=== PATIENT | female | born 1980 | race Caucasian/White ===

== ENCOUNTER → 2018-07-24 | Outpatient (CLI) | payer BC ==
[2018-07-24 12:03] LABS: Basophils % (A) 0 %; Eosinophils # (A) 0.1 k/uL (0-0.7); Eosinophils % (A) 2 %; HCT 43.7 % (34.0-46.0); HGB 14.5 gm/dL (11.4-16.0); Lymphocytes # (A) 1.1 k/uL (1.0-4.8); Lymphocytes % (A) 27 %; MCH 29.9 pg (25.0-35.0); MCHC 33.3 g/dL (31.0-37.0); MCV 89.7 fL (80.0-100.0); Mean Platelet Volume 6.8; Monocytes # (A) 0.3 k/uL (0-1.0); Monocytes % (A) 7 %; Neutrophils # (A) 2.6 k/uL (1.3-7.7); Neutrophils % (A) 60 %; Platelet Count 260 k/uL (150-450); RBC 4.87 m/uL (3.80-5.40); RDW 12.7 % (11.5-15.5); WBC 4.3 k/uL (3.8-10.6)
[2018-07-24 18:31] LABS: Albumin 3.7 g/dL (3.80-4.90); Albumin/Globulin Ratio 1.54 (1.60-3.17); Anion Gap 8.6 mmol/L (4.00-12.00); Calcium 8.9 mg/dL (8.7-10.3); Carbon Dioxide 26.4 mmol/L (21.6-31.8); Globulin 2.4 g/dL (1.6-3.3); LDL Cholesterol,Calculated 179.4 mg/dL (0.0-131.0); Potassium 3.8 mmol/L (3.5-5.5); Total Bilirubin 0.5 mg/dL (0.2-1.2); Total Protein 6.1 g/dL (6.2-8.2); VLDL Calculation 16.6 mg/dL (5.00-40.00)
[2018-07-24 18:39] LABS: T4, Free (Free Thyroxine) 1.2 ng/dL (0.80-1.80)
[2018-07-24 20:25] LABS: Hemoglobin A1C 4.9 % (4.0-6.0)
[2018-07-25 10:04] VITALS: BMI 30.2
== END ==
LOC: LABWHC1 09:38
PROVIDERS: ATTEND Internal Medicine Geriatric Medicine
DX: E78.2 Mixed hyperlipidemia (principal)
CPT/HCPCS: 36415; 80053; 80061; 83036; 84439; 84443; 85025; 97802

== ENCOUNTER → 2019-03-11 | Outpatient (CLI) | payer BC ==
--- NOTE | 2019-03-11 10:32 | MM ---
Reason for exam: screening (asymptomatic). Last mammogram was performed 2 years and 7 months ago. History: Family history of breast cancer in paternal grandmother and breast cancer in paternal aunt. Physical Findings: A clinical breast exam by your physician is recommended on an annual basis and results should be correlated with mammographic findings. MG 3D Screening Mammo W/Cad Bilateral CC and MLO view(s) were taken. Prior study comparison: August 03, 2016, mammogram, performed at [facility]. There are scattered fibroglandular densities. No suspicious abnormality. No significant changes when compared with prior studies. ASSESSMENT: Negative, BI-RAD 1 RECOMMENDATION: Routine screening mammogram of both breasts in 1 year.
== END | disposition home or self-care (01) ==
LOC: RADMAMWWP 10:00
PROVIDERS: ATTEND Obstetrics & Gynecology
DX: Z12.31 Encounter for screening mammogram for malignant neoplasm of breast (principal)
CPT/HCPCS: 77063; 77067

== ENCOUNTER → 2020-06-15 | Outpatient (CLI) | payer BC ==
[2020-06-15 15:33] LABS: HCT 41.8 % (37.2-46.3); HGB 14.2 g/dL (12.0-15.0); MCH 31.3 pg (27.0-32.0); MCV 92.1 fL (80.0-97.0); Mean Platelet Volume 10.2 fL (9.5-12.2); Platelet Count 287 X 10*3/uL (140-440); RBC 4.54 X 10*6/uL (4.10-5.20); RDW 12.1 % (11.5-14.5); WBC 4.18 X 10*3/uL (4.50-10.00)
[2020-06-15 18:12] LABS: African American GFR (CKD) 106.1 (60.0-200.0); Albumin 3.5 g/dL (3.80-4.90); Albumin/Globulin Ratio 1.21 (1.60-3.17); BUN/Creat Ratio 17.5 Ratio (12.00-20.00); Calcium 9.8 mg/dL (8.7-10.3); Chol/HDL Ratio 3.74; Globulin 2.9 g/dL (1.6-3.3); LDL Cholesterol,Calculated 170.4 mg/dL (0.0-131.0); Non-African American GFR(CKD) 91.6 (60.0-200.0); Potassium 4.9 mmol/L (3.5-5.5); Total Bilirubin 0.6 mg/dL (0.3-1.2); Total Protein 6.4 g/dL (6.2-8.2); VLDL Calculation 15.6 mg/dL (5.00-40.00)
== END | disposition home or self-care (01) ==
LOC: LABWHC1 09:24
PROVIDERS: ATTEND Obstetrics & Gynecology
DX: Z13.220 Encounter for screening for lipoid disorders (principal)
CPT/HCPCS: 36415; 80053; 80061; 85027

== ENCOUNTER → 2021-07-06 | Outpatient (CLI) | payer BC ==
[2021-07-06 18:58] LABS: HGB 14.1 g/dL (12.0-15.0); MCH 30.1 pg (27.0-32.0); MCHC 32.8 g/dL (32.0-37.0); MCV 91.9 fL (80.0-97.0); Mean Platelet Volume 10.7 fL (9.5-12.2); NRBC Per 100 WBC 0 /100 WBCS (0.0-0.0); Platelet Count 291 X 10*3/uL (140-440); RBC 4.68 X 10*6/uL (4.10-5.20); RDW 12.9 % (11.5-14.5); WBC 3.47 X 10*3/uL (4.50-10.00)
[2021-07-07 00:27] LABS: ALT 42 U/L (8-44); AST 26 U/L (13-35); African American GFR (CKD) 126.3 (60.0-200.0); Albumin 3.8 g/dL (3.8-4.9); Alkaline Phosphatase 44 U/L (41-126); Blood Urea Nitrogen 14.5 mg/dL (9.0-27.0); Calcium 9.4 mg/dL (8.7-10.3); Carbon Dioxide 22.6 mmol/L (20.0-27.5); Chloride 106 mmol/L (96-109); Chol/HDL Ratio 4.13 Ratio; Globulin 3.1 g/dL (1.6-3.3); Glucose 77 mg/dL (70-110); LDL Cholesterol,Calculated 143.4 mg/dL (0.0-131.0); Potassium 3.9 mmol/L (3.5-5.5); Sodium 140 mmol/L (135-145); Total Protein 6.9 g/dL (6.2-8.2); VLDL Calculation 15.04 mg/dL (5.00-40.00)
--- NOTE | 2021-07-07 11:18 | MM ---
Reason for exam: screening (asymptomatic). Last mammogram was performed 2 years and 4 months ago. History: Family history of breast cancer in paternal grandmother and breast cancer in paternal aunt. Physical Findings: A clinical breast exam by your physician is recommended on an annual basis and results should be correlated with mammographic findings. MG 3D Screening Mammo W/Cad Bilateral CC and MLO view(s) were taken. Prior study comparison: March 11, 2019, bilateral MG 3d screening mammo w/cad. August 03, 2016, mammogram, performed at [facility]. There are scattered fibroglandular densities. There is no discrete abnormality. No significant changes when compared with prior studies. ASSESSMENT: Negative, BI-RAD 1 RECOMMENDATION: Routine screening mammogram of both breasts in 1 year.
== END | disposition home or self-care (01) ==
LOC: RADMAMWWP 08:45
PROVIDERS: ATTEND Obstetrics & Gynecology
DX: Z12.31 Encounter for screening mammogram for malignant neoplasm of breast (principal); Z13.220 Encounter for screening for lipoid disorders; Z80.3 Family history of malignant neoplasm of breast
CPT/HCPCS: 77063; 77067; 80053; 80061; 85027

== ENCOUNTER → 2022-07-07 | Outpatient (CLI) | payer BC ==
[2022-07-07 16:45] LABS: HCT 39.1 % (37.2-46.3); HGB 13.3 g/dL (12.0-15.0); MCH 30.7 pg (27.0-32.0); MCV 90.3 fL (80.0-97.0); Mean Platelet Volume 9.6 fL (9.5-12.2); NRBC Per 100 WBC 0 /100 WBCS (0.0-0.0); Platelet Count 281 X 10*3/uL (140-440); RBC 4.33 X 10*6/uL (4.10-5.20); RDW 12.5 % (11.5-14.5); WBC 4.57 X 10*3/uL (4.50-10.00)
== END | disposition home or self-care (01) ==
LOC: LABWHC1 08:34
PROVIDERS: ATTEND Obstetrics & Gynecology
DX: D72.9 Disorder of white blood cells, unspecified (principal)
CPT/HCPCS: 36415; 85027

== ENCOUNTER → 2022-07-07 | Outpatient (CLI) | payer BC ==
--- NOTE | 2022-07-10 08:06 | MM ---
Reason for Exam: Screening (asymptomatic). Last screening mammogram was performed 12 month(s) ago. Patient History: Menarche at age 10. First Full-Term at age 26. Paternal grandmother had breast cancer. Paternal aunt had breast cancer. Last menstrual period: 06/21/2022 Risk Values: Lucinda 5 year model risk: 0.8%. NCI Lifetime model risk: 10.8%. Prior Study Comparison: 08/03/2016 Screening Mammogram, [facility]. 03/11/2019 Bilateral Screening Mammogram, [facility]. 07/06/2021 Bilateral Screening Mammogram, [facility]. Tissue Density: There are scattered fibroglandular densities. Findings: Analyzed By CAD. There is occasional tiny benign-appearing round calcification redemonstrated throughout the bilateral breasts. There is stable 4 mm round mass anteriorly in the left breast. There is no suspicious new group of microcalcifications or new suspicious mass in either breast. Overall Assessment: Benign, BI-RAD 2 Management: Screening Mammogram of both breasts in 1 year. A clinical breast exam by your physician is recommended on an annual basis and results should be correlated with mammographic findings. Electronically signed and approved by: Jorge Luis Mora M.D.
== END | disposition home or self-care (01) ==
LOC: RADMAMWWP 08:31
DX: Z12.31 Encounter for screening mammogram for malignant neoplasm of breast (principal); Z80.3 Family history of malignant neoplasm of breast
CPT/HCPCS: 77063; 77067

== ENCOUNTER 2022-12-14 06:18 | Day surgery (SDC) | payer BC ==
[2022-12-07 11:41] VITALS: BMI 27.4
--- NOTE | 2022-12-13 12:44 | P.HPOB ---
History of Present Illness H&P Date: 12/13/22 Chief Complaint: Persistent low-grade cervical changes This patient is a pleasant 42-year-old 3 para 3 female who presents for colposcopy with LEEP excision of the ectocervix and endocervix secondary to persistent low-grade cervical changes. For many years the patient has had low- grade changes on her Pap smear and documented low-grade changes on colposcopy. Most recent colposcopy was done on June of this year which showed negative endocervical tissue but cholestatic changes of the ectocervix. Janki and I have discussed options including continued expectant management and close observation versus excision of this area. Since this is been going on for many years we have elected to proceed with LEEP excision of this area. Review of Systems Genitourinary: Reports as per HPI Past Medical History Past Medical History: GERD/Reflux, Hyperlipidemia Additional Past Medical History / Comment(s): planter fasciitis, n/v and back pain after eatting History of Any Multi-Drug Resistant Organisms: None Reported Past Surgical History: Section, Orthopedic Surgery Additional Past Surgical History / Comment(s): ganglion cyst, rt shoulder surgery, breast reduction & tummy tuck (july 2022) Past Anesthesia/Blood Transfusion Reactions: No Reported Reaction, Motion Sickness Additional Psychological History / Comment(s): hx post depression Smoking Status: Never smoker Past Alcohol Use History: Occasional Past Drug Use History: None Reported - Past Family History Mother Family Medical History: Cancer Additional Family Medical History / Comment(s): thyroid cancer Father Family Medical History: Cancer Additional Family Medical History / Comment(s): kidney cancer Medications and Allergies Home Medications Medication Instructions Recorded Confirmed Type Calcium Carbonate [Tums] 500 mg PO DIRECTED PRN 12/07/22 12/07/22 History Ezetimibe [Zetia] 10 mg PO DAILY 12/07/22 12/07/22 History Glucosam/Jayant-Msm1/C/Sai/Bosw 1 each PO DAILY 12/07/22 12/07/22 History [Glucosamine-Chondroitin Tablet] Multivitamins, Thera [Multivitamin 1 tab PO DAILY 12/07/22 12/07/22 History (formulary)] Luning-3/Dha/Epa/Fish Oil [Fish Oil 1 each PO DAILY 12/07/22 12/07/22 History 1,000 mg Softgel] Turmeric (Unknown Dose) 1 dose PO DAILY 12/07/22 History Allergies Allergy/AdvReac Type Severity Reaction Status Date / Time latex Allergy red skin Verified 12/07/22 11:25 sulfamethoxazole AdvReac dizzy, Verified 12/07/22 11:25 [From Bactrim] abdominal pain trimethoprim [From Bactrim] AdvReac dizzy, Verified 12/07/22 11:25 abdominal pain Exam - OBG Physical Exam Abdomen: bowel sounds normal, no diffuse tenderness, no bruit present, no guarding noted, no hepatomegaly, no splenomegaly, no mass Vulva: both: normal Vagina: normal moisture, no discharge Cervix: no lesion, no discharge Uterus: normal size, normal contour Assessment and Plan Assessment: This is a pleasant 42-year-old 3 para 3 female with persistent low-grade cervical changes for many years. We have discussed continued observation versus treatment and were elected to proceed with colposcopy with LEEP excision of the ectocervix and endocervix. We have discussed the surgery and risks and risks of infection, bleeding, possible negative pathology. All the patient's questions have been answered and a written consent is obtained. (1) Low grade squamous intraepithelial lesion (LGSIL) on cervical Pap smear Status: Acute Code(s): R87.612 - LOW GRADE INTREPITH LESION CYTO SMR CRVX (LGSIL) SNOMED Code(s): 01466885417254
[~2022-12-14 06:18] MED LIST: DEXAMETHASONE SOD PHOSPHATE 4 MG/ML 1 ML VIAL IV ONE; HYDROmorphone 0.5 MG/0.5 ML SYRINGE IVP PRN; LIDOCAINE 1% (10MG/ML) FOR IV START INTRADERMA PRN; MIDAZOLAM 2 MG/2 ML VIAL IV PRN; ONDANSETRON 4 MG/2 ML VIAL IVP ONE; Pre Op ABX Message 1 EACH MISC MISCELLANE ONE
[2022-12-14 06:46] VITALS: RESP 16
[2022-12-14] MEDS: LACTATED RINGERS 1,000 ML IV SCH ×2 (06:59→07:22)
[2022-12-14] MEDS ORDERED: LIDOCAINE 2% INJ 20 MG/ML (2 ML VIAL) ONE (07:22)
[2022-12-14] MEDS ORDERED: MIDAZOLAM 2 MG/2 ML VIAL ONE (07:22)
[2022-12-14] MEDS ORDERED: PROPOFOL 10 MG/ML 20 ML VIAL IV ONE (07:22)
[2022-12-14] MEDS ORDERED: KETOROLAC 15 MG/ML 1 ML VIAL ONE (07:22)
[2022-12-14] MEDS ORDERED: IODINE/POTASSIUM IODIDE 14 ML BOTTLE TOPICAL ONE (07:46)
[2022-12-14] MEDS ORDERED: FERRIC SUBSULFATE (MONSELS) JAR TOPICAL ONE (07:46)
--- NOTE | 2022-12-14 07:55 | P.OP ---
Date of Procedure: 12/14/22 Preoperative Diagnosis: Persistent low-grade cervical changes Postoperative Diagnosis: Same Procedure(s) Performed: Colposcopy with LEEP excision of the ecto/endocervix Anesthesia: MAC Surgeon: Steven Hoffmann Estimated Blood Loss (ml): 10 Urine output (ml): 25 Pathology: other (Ectocervix and endocervix) Condition: stable Disposition: PACU Indications for Procedure: Please see dictated H&P for intimate details of this patient's admission. In brief summary this pleasant 42-year-old 3 para 3 female with persistent low-grade cervical changes. Patient presents for colposcopy with LEEP excision of this area. She understands this procedure and risks and risks of infection and bleeding. All the patient's questions are answered and a written consent is obtained. Operative Findings: This patient had normal-appearing ectocervix on colposcopy Description of Procedure: This patient is taken to the operating room where she is laid in the supine position. She subsequently undergoes general mask anesthesia without incident. With an adequate level of anesthesia she has a vaginal perineal prep and drape. The bladder is drained with a latex free catheter for 25 mL of clear urine. The laser speculum was placed into the vagina and the cervix is visualized. Colposcopy is performed this time and using Lugol's solution the ectocervix is visualized. No obvious lesions are noted. With this done, the large LEEP loop was placed at a 60/70 cutting cautery setting. With one pass I remove the entire ectocervical cervix with transformation zone. Using a smaller LEEP loop I remove a portion of the endocervix. Cautery is then used to achieve hemostasis. The ectocervix endocervical margins are then cauterized completely. With this done a small amount of Monsel solution is placed on the ectocervix. Excellent hemostasis is noted. Procedure is then ended. The speculum was removed. All counts are correct 3. There are no complications. Patient is awakened from anesthesia and taken recovery room satisfactory condition.
[2022-12-14 08:04] VITALS: TEMP 97.1
[2022-12-14 09:19] VITALS: BP 107/61; PULSE 58
== END 2022-12-14 09:24 | disposition home or self-care (01) ==
LOC: OR 06:18
PROVIDERS: ATTEND Obstetrics & Gynecology
DX: N72 Inflammatory disease of cervix uteri (principal); K21.9 Gastro-esophageal reflux disease without esophagitis; E78.5 Hyperlipidemia, unspecified; Z98.890 Other specified postprocedural states; Z79.899 Other long term (current) drug therapy; Z86.59 Personal history of other mental and behavioral disorders; Z88.1 Allergy status to other antibiotic agents; Z91.040 Latex allergy status; Z88.2 Allergy status to sulfonamides
CPT/HCPCS: 81025; 88307; 57460; J2250; J1100; J2405; J1885; J2704; J2001

== ENCOUNTER → 2023-08-09 | Outpatient (CLI) | payer BC ==
--- NOTE | 2023-08-13 09:22 | MM ---
Reason for Exam: Screening (asymptomatic). Last mammogram was performed 1 year(s) and 1 month(s) ago. Patient History: Menarche at age 10. First Full-Term at age 26. 07/26/2022, Bilateral Reduction. Paternal grandmother had breast cancer. Paternal aunt had breast cancer. Last menstrual period: 08/03/2023 Risk Values: Lucinda 5 year model risk: 0.9%. NCI Lifetime model risk: 10.7%. Prior Study Comparison: 03/11/2019 Bilateral Screening Mammogram, [facility]. 07/06/2021 Bilateral Screening Mammogram, [facility]. 07/07/2022 Bilateral MG 3D screening mammo w/cad, [facility]. Tissue Density: The breasts are heterogeneously dense, which may obscure small masses. Findings: Analyzed By CAD. There is no suspicious group of microcalcifications or new suspicious mass in either breast. Overall Assessment: Benign, BI-RAD 2 Management: Screening Mammogram of both breasts in 1 year. . Patient should continue monthly self-breast exams. A clinical breast exam by your physician is recommended on an annual basis. This exam should not preclude additional follow-up of suspicious palpable abnormalities. Note on Lucinda scores and lifetime risk: 1. A Lucinda score greater than 3% is considered moderate risk. If this is the case, consider specialist referral to assess eligibility for a risk reducing agent. 2. If overall lifetime risk for the development of breast cancer is 20% or higher, the patient may qualify for future screening with alternating mammogram and breast MRI. Electronically signed and approved by: Primo Gloria M.D. Radiologis
== END | disposition home or self-care (01) ==
LOC: RADMAMWWP 08:48
PROVIDERS: ATTEND Family Medicine
DX: Z12.31 Encounter for screening mammogram for malignant neoplasm of breast (principal); Z80.3 Family history of malignant neoplasm of breast
CPT/HCPCS: 77063; 77067

== ENCOUNTER 2023-09-25 07:58 | Day surgery (SDC) | payer BC ==
[~2023-09-25 07:58] MED LIST changes: -DEXAMETHASONE SOD PHOSPHATE 4 MG/ML 1 ML VIAL IV ONE; -HYDROmorphone 0.5 MG/0.5 ML SYRINGE IVP PRN; -MIDAZOLAM 2 MG/2 ML VIAL IV PRN; -ONDANSETRON 4 MG/2 ML VIAL IVP ONE; -Pre Op ABX Message 1 EACH MISC MISCELLANE ONE
[2023-09-25 08:14] VITALS: RESP 16; TEMP 97.5
[2023-09-25] MEDS: LACTATED RINGERS 1,000 ML IV SCH (08:23)
[2023-09-25] MEDS: IV FLUID CONTINUATION 1,000 ML IV ONE (08:24)
[2023-09-25] MEDS ORDERED: PROPOFOL 10 MG/ML 20 ML VIAL IV ONE (08:28)
--- NOTE | 2023-09-25 08:34 | P.GSHP ---
History of Present Illness H&P Date: 09/25/23 Chief Complaint: Colon cancer screening 43-year-old female here for colonoscopy. She has not had 1 previously. No bowel complaints. No family history of colon cancer. Past Medical History Past Medical History: Cancer, GERD/Reflux, Hyperlipidemia Additional Past Medical History / Comment(s): planter fasciitis, skin cnacer History of Any Multi-Drug Resistant Organisms: None Reported Past Surgical History: Section, Orthopedic Surgery Additional Past Surgical History / Comment(s): ganglion cyst, rt shoulder surgery, breast reduction & tummy tuck (july 2022) Past Anesthesia/Blood Transfusion Reactions: No Reported Reaction, Motion Sickness Smoking Status: Never smoker - Past Family History Mother Family Medical History: Cancer Additional Family Medical History / Comment(s): thyroid cancer Father Family Medical History: Cancer Additional Family Medical History / Comment(s): kidney cancer Medications and Allergies Home Medications Medication Instructions Recorded Confirmed Type Calcium Carbonate [Tums] 500 mg PO DIRECTED PRN 12/07/22 09/20/23 History Serdexmethylphen/Dexmethylphen 1 tab PO DAILY 09/20/23 09/20/23 History [Azstarys 26.1 mg-5.2 mg Cap] Allergies Allergy/AdvReac Type Severity Reaction Status Date / Time latex Allergy red skin Verified 09/20/23 11:45 sulfamethoxazole AdvReac dizzy, Verified 09/20/23 11:45 [From Bactrim] abdominal pain trimethoprim [From Bactrim] AdvReac dizzy, Verified 09/20/23 11:45 abdominal pain Surgical - Exam Vital Signs Temp Pulse Resp BP Pulse Ox 97.5 F L 78 16 118/86 95 09/25/23 08:12 09/25/23 08:12 09/25/23 08:12 09/25/23 08:12 09/25/23 08:12 Physical exam: General: Well-developed, well-nourished HEENT: Normocephalic, sclerae nonicteric Abdomen: Nontender, nondistended Extremities: No edema Neuro: Alert and oriented Assessment and Plan (1) Colon cancer screening Narrative/Plan: Will proceed with colonoscopy at this time. Current Visit: Yes Status: Acute Code(s): Z12.11 - ENCOUNTER FOR SCREENING FOR MALIGNANT NEOPLASM OF COLON SNOMED Code(s): 124658024
--- NOTE | 2023-09-25 08:48 | P.PCN ---
Date of Procedure: 09/25/23 Procedure(s) Performed: PREOPERATIVE DIAGNOSIS: Colon cancer screening POSTOPERATIVE DIAGNOSIS: Normal exam PROCEDURE: Colonoscopy ANESTHESIA: MAC SURGEON: Erwin Napier M.D. SPECIMENS: None ENDOSCOPIC PROCEDURE: The patient was placed on the endoscopy table in the left decubitus position. The Olympus colonoscope was inserted into the anus and passed under direct visualization to the base of the cecum. The appendiceal orifice was visualized. From that point the scope was slowly withdrawn inspecti ng all surfaces carefully. There were no neoplastic inflammatory or polypoid lesions throughout the cecum, ascending, transverse, descending, sigmoid and rectum. There was no visible diverticulosis noted. Digital rectal examination was normal. The patient was taken to the recovery room in stable condition per anesthesia guidelines. RECOMMENDATIONS: Resume diet. Repeat colonoscopy 10 years.
[2023-09-25 09:06] VITALS: BP 110/64; PULSE 62
== END 2023-09-25 09:20 | disposition home or self-care (01) ==
LOC: ORWHC2ENDO 07:58
PROVIDERS: ATTEND Surgery
DX: Z12.11 Encounter for screening for malignant neoplasm of colon (principal); E78.5 Hyperlipidemia, unspecified; K21.9 Gastro-esophageal reflux disease without esophagitis; Z88.1 Allergy status to other antibiotic agents; Z88.2 Allergy status to sulfonamides; Z91.040 Latex allergy status; Z85.828 Personal history of other malignant neoplasm of skin; Z79.899 Other long term (current) drug therapy
CPT/HCPCS: 81025; 45378; J2704

== ENCOUNTER 2023-12-03 18:21 | Emergency (ER) | payer BC ==
[2023-12-03] MEDS ORDERED: APIXABAN 5 MG TAB ONE (22:52)
--- NOTE | 2024-01-03 18:32 | US ---
Patient: Areli Negrete Ordering Physician: Unknown, Unknown ID: [id number] Phone, Pager: Phone: N/ A Pager: N/A : 1980 Age/Gender: 43Y, O Primary Location: N/A Procedure: US venous doppler dupl ex LE LT Study Date: 12/03/2023 8:18:00 PM EXAMINATION TYPE: US venous doppler duplex LE LT DATE OF EXAM: 12/15/2023 3:41 PM COMPARISON: NONE CLINICAL INDICATION: RULE OUT DVT. PATIENT ON LONG FLIGHT. PAIN BEHIND KNEE/ CALF. NO THINNERS. NO HX DVT SIDE PERFORMED: Left TECHNIQUE: The lower extremity deep venous system is examined utilizing real time linear array sonog rik with graded compression, doppler sonography and color-flow sonography. VESSELS IMAGED: Common Femoral Vein Deep Femoral Vein Greater Saphenous Vein * Femoral Vein Popliteal Vein Small Saphenous Vein * Proximal Calf Veins (* superficial vessels) Left Leg: Thrombus seen within the popliteal vein and proximal calf veins. IMPRESSION: Deep vein to most of the left popliteal vein and extending into the calf veins.
== END 2023-12-03 22:50 | disposition home or self-care (01) ==
LOC: EC 18:21
DX: I82.4Z2 Acute embolism and thrombosis of unspecified deep veins of left distal lower extremity (principal)
CPT/HCPCS: 99283

== ENCOUNTER → 2024-08-18 | Outpatient (CLI) | payer BC ==
--- NOTE | 2024-08-18 11:45 | MM ---
Reason for Exam: Screening (asymptomatic). Last screening mammogram was performed 12 month(s) ago. Patient History: Menarche at age 10. First Full-Term at age 26. 07/26/2022, Bilateral Reduction. Paternal grandmother had breast cancer. Paternal aunt had breast cancer. Last menstrual period: 07/27/2024 Risk Values: Lucinda 5 year model risk: 0.9%. NCI Lifetime model risk: 10.6%. Prior Study Comparison: 07/06/2021 Bilateral Screening Mammogram, [facility]. 07/07/2022 Bilateral MG 3D screening mammo w/cad, [facility]. 08/09/2023 Bilateral MG 3D screening mammo w/cad, [facility]. Tissue Density: There are scattered areas of fibroglandular density. Findings: Analyzed By CAD. Benign-appearing bilateral axillary lymph nodes are present. There are a few tiny benign-appearing round calcifications bilaterally. There is increasing indistinct calcifications posterior left breast that warrant further workup. Overall Assessment: Incomplete: need additional imaging evaluation, BI-RAD 0 Management: Special View Mammogram of the left breast. Return for additional spot magnification and 3-D true lateral views left breast. Patient should continue monthly self-breast exams. A clinical breast exam by your physician is recommended on an annual basis. This exam should not preclude additional follow-up of suspicious palpable abnormalities. Note on Lucinda scores and lifetime risk: 1. A Lucinda score greater than 3% is considered moderate risk. If this is the case, consider specialist referral to assess eligibility for a risk reducing agent. 2. If overall lifetime risk for the development of breast cancer is 20% or higher, the patient may qualify for future screening with alternating mammogram and breast MRI. [facility], , 08/18/2024 11:43 AM. Electronically signed and approved by: Jorge Luis Mora M.D.
== END | disposition home or self-care (01) ==
LOC: RADMAMWWP 09:31
PROVIDERS: ATTEND Obstetrics & Gynecology Obstetrics
DX: Z12.31 Encounter for screening mammogram for malignant neoplasm of breast (principal); R92.323 Mammographic fibroglandular density, bilateral breasts; Z80.3 Family history of malignant neoplasm of breast
CPT/HCPCS: 77063; 77067

== ENCOUNTER → 2024-08-21 | Outpatient (CLI) | payer BC ==
--- NOTE | 2024-08-21 11:43 | MM ---
Reason for Exam: Additional evaluation requested from abnormal screening. Last screening mammogram was performed less than 1 month ago. Patient History: Menarche at age 10. First Full-Term at age 26. 07/26/2022, Bilateral Reduction. Paternal grandmother had breast cancer. Paternal aunt had breast cancer. Risk Values: Lucinda 5 year model risk: 0.9%. NCI Lifetime model risk: 10.6%. Prior Study Comparison: 07/07/2022 Bilateral MG 3D screening mammo w/cad, [facility]. 08/09/2023 Bilateral MG 3D screening mammo w/cad, [facility]. 08/18/2024 Bilateral MG 3D screening mammo w/cad, [facility]. Tissue Density: Left: There are scattered areas of fibroglandular density. Findings: Analyzed By CAD. There is grouped benign-appearing calcification in the left breast on additional views correlating with developing oil cyst as patient had recent bilateral breast reduction in the posterior aspect of the left breast. Overall Assessment: Benign, BI-RAD 2 Management: Screening Mammogram of both breasts in 1 year. Return to routine follow-up. Results were given to the patient verbally at the time of exam. Patient should continue monthly self-breast exams. A clinical breast exam by your physician is recommended on an annual basis. This exam should not preclude additional follow-up of suspicious palpable abnormalities. Note on Lucinda scores and lifetime risk: 1. A Lucinda score greater than 3% is considered moderate risk. If this is the case, consider specialist referral to assess eligibility for a risk reducing agent. 2. If overall lifetime risk for the development of breast cancer is 20% or higher, the patient may qualify for future screening with alternating mammogram and breast MRI. [facility], , 08/21/2024 11:40 AM. Electronically signed and approved by: Jorge Luis Mora M.D.
== END | disposition home or self-care (01) ==
LOC: RADMAMWWP 11:05
PROVIDERS: ATTEND Obstetrics & Gynecology Obstetrics
DX: R92.8 Other abnormal and inconclusive findings on diagnostic imaging of breast (principal); R92.322 Mammographic fibroglandular density, left breast; R92.1 Mammographic calcification found on diagnostic imaging of breast; Z80.3 Family history of malignant neoplasm of breast
CPT/HCPCS: 77061; 77065